=== PATIENT | male | born 1980 | race Caucasian/White ===

== ENCOUNTER 2019-03-06 15:01 | Emergency (ER) | payer MEDICAID ==
[~2019-03-06] VITALS: Ht 177.8 cm; Wt 101.7 kg
[~2019-03-06 15:01] MED LIST: FAMO-96 PO; HYDR-4011 PO; ONDA4TAB14 PO
[2019-03-06 15:11] VITALS: BP 119/78; PULSE 89; RESP 20; Ht 177.8 cm; Wt 101.7 kg
[2019-03-06] MEDS ORDERED: ONDANSETRON 4 MG INJ IV STA (15:38)
[2019-03-06] MEDS ORDERED: SOD CHLORIDE 0.9% 1,000 ML IV STA (15:38)
[2019-03-06] MEDS ORDERED: FAMOTIDINE 20 MG INJ IV STA (15:38)
== END 2019-03-06 17:15 | disposition home or self-care (01) ==
LOC: FTE 15:01
DX: R10.9 Unspecified abdominal pain (principal); J45.909 Unspecified asthma, uncomplicated
CPT/HCPCS: 36415; 76705; 80053; 81003; 83690; 85025; 96361; 96374; 96375; J2405; J7030; Z7502; Z7610